=== PATIENT | male | born 1990 | race African-American/Black ===

== ENCOUNTER 2016-05-18 23:44 | Inpatient (IN) | payer OTHER ==
[~2016-05-18] VITALS: Ht 170.2 cm; Wt 97.1 kg
[2016-05-18 23:50] VITALS: BP 119/66; PULSE 96; RESP 16; TEMP 98; O2SAT 94
[2016-05-18] MEDS ORDERED: SODIUM CHLOR 0.9% 1000 ML INJ 1,000 ML IV SCH (23:53)
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
[2016-05-19] VITALS (8 sets, daily range): BP systolic 115–165; BP diastolic 62–100; PULSE 90–114; RESP 14–19; TEMP 98–99.7; O2SAT 93–97
[2016-05-19] MEDS ORDERED: DIPHTH/TETANUS/ACEL PERTUSSIS (BOOSTER) 0.5 ML VIAL/PFS IM ONE
[2016-05-19] MEDS ORDERED: ceFAZolin 2 GM PREMIX 50 ML IV ONE
[2016-05-19 00:12] LABS: I-STAT POTASSIUM 3.9 MMOL/L (3.5-4.9)
[2016-05-19 00:18] LABS: AUTOMATED NEUTROPHIL # 6.4 TH/MM3 (1.8-7.7); BASOPHIL # 0.1 TH/MM3 (0-0.2); BASOPHIL % 0.6 % (0.0-2.0); EOSINOPHIL # 0.1 TH/MM3 (0-0.4); EOSINOPHIL % 0.6 % (0.0-4.0); HEMATOCRIT 42.8 % (39.0-51.0); HEMO FLAGS DIFF FINAL; LYMPHOCYTE # 2.1 TH/MM3 (1.0-4.8); MEAN CELL VOLUME 84.3 FL (80.0-100.0); MEAN CORPUSCULAR HEMOGLOBIN 28.3 PG (27.0-34.0); MEAN CORPUSCULAR HGB CONC 33.5 % (32.0-36.0); NEUT % 66.8 % (16.0-70.0); PLATELET COUNT 200 TH/MM3 (150-450); RED BLOOD COUNT 5.08 MIL/MM3 (4.50-5.90); RED CELL DISTRIBUTION WIDTH 14.3 % (11.6-17.2); WHITE BLOOD COUNT 9.6 TH/MM3 (4.0-11.0)
[2016-05-19 00:35] LABS: PROTHROMBIN TIME - PATIENT 10.6 SEC (9.8-11.6)
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
[2016-05-19] MEDS ORDERED: IOHEXOL 350 MG/ML 10 ML VIAL (for RAD DIAG) IV ONE (00:42)
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
[2016-05-19] MEDS ORDERED: ONDANSETRON HCL 4 MG/2 ML VIAL IV PRN ×2 (02:15→08:15)
[2016-05-19] MEDS ORDERED: SODIUM CHLORIDE 0.9% FLUSH 5 ML FLUSH IVF PRN ×3 (02:15→08:15)
--- NOTE | 2016-05-19 02:31 | PD ---
Physical Exam Time Seen by Provider: 02:30 Data Data Last Documented VS Vital Signs Date Time Temp Pulse Resp B/P Pulse Ox O2 Delivery O2 Flow Rate FiO2 05/19/16 00:23 97 18 131/76 93 05/18/16 23:50 98.0 Orders I-Stat Profile (05/18/16 23:53) I-Stat Creatinine (05/18/16 23:53) Complete Blood Count With Diff (05/18/16 23:53) Prothrombin Time / Inr (Pt) (05/18/16 23:53) Act Partial Throm Time (Ptt) (05/18/16 23:53) Type And Screen (05/18/16 23:53) Alcohol (Ethanol) (05/18/16 23:53) Ct Brain W/O Iv Contrast(Rout) (05/18/16 23:53) Ct Cerv Spine W/O Contrast (05/18/16 23:53) Iv Access Insert/Monitor (05/18/16 23:53) Ecg Monitoring (05/18/16 23:53) Oximetry (05/18/16 23:53) Oxygen Administration (05/18/16 23:53) Remove Backboard (05/18/16 23:53) Splint Or Brace Apply/Monitor (05/18/16 23:53) Cefazolin 2 Gm Premix (Ancef 2 Gm Premix (05/19/16 00:00) [id number] (Booster) Inj (Boostrix (05/19/16 00:00) Sodium Chlor 0.9% 1000 Ml Inj (Ns 1000 M (05/18/16 23:53) Sodium Chloride 0.9% Flush (Ns Flush) (05/19/16 00:00) Ankle, Complete ([id number]) (05/18/16 ) Foot, Complete ([id number]) (05/18/16 ) Chest, Single Ap (05/19/16 ) Pelvis, Ap Only (Routine) (05/19/16 ) Elbow, Complete (4 Vws) (05/19/16 ) Iohexol 350 Inj (Omnipaque 350 Inj) (05/19/16 00:42) Ct Abd/Pel W Iv Contrast(Rout) (05/19/16 23:53) Ct Thorax/ Chest W Iv Contrast (05/19/16 23:53) Ct Foot W/O Contrast (05/19/16 ) Splint Or Brace Apply/Monitor (05/19/16 02:10) Admit Order (Ed Use Only) (05/19/16 ) Diet Npo (05/20/16 Breakfast) ^ Saline Lock (05/19/16 02:13) Resp Oxygen Luis A C Titrat 1-4 L (05/19/16 ) ^ Notify Dr: Other (05/19/16 02:13) Ondansetron Inj (Zofran Inj) (05/19/16 02:15) Sodium Chloride 0.9% Flush (Ns Flush) (05/19/16 09:00) Sodium Chloride 0.9% Flush (Ns Flush) (05/19/16 02:15) Consult Orthopedic (05/19/16 02:13) Labs Laboratory Tests Test 05/19/16 05/19/16 00:00 00:05 White Blood Count 9.6 TH/MM3 Red Blood Count 5.08 MIL/MM3 Hemoglobin 14.4 GM/DL Bedside Hemoglobin 15.6 G/DL Hematocrit 42.8 % Bedside Hematocrit 46.0 % Mean Corpuscular Volume 84.3 FL Mean Corpuscular Hemoglobin 28.3 PG Mean Corpuscular Hemoglobin 33.5 % Concent Red Cell Distribution Width 14.3 % Platelet Count 200 TH/MM3 Mean Platelet Volume 7.7 FL Neutrophils (%) (Auto) 66.8 % Lymphocytes (%) (Auto) 22.0 % Monocytes (%) (Auto) 10.0 % Eosinophils (%) (Auto) 0.6 % Basophils (%) (Auto) 0.6 % Neutrophils # (Auto) 6.4 TH/MM3 Lymphocytes # (Auto) 2.1 TH/MM3 Monocytes # (Auto) 1.0 TH/MM3 Eosinophils # (Auto) 0.1 TH/MM3 Basophils # (Auto) 0.1 TH/MM3 CBC Comment DIFF FINAL Differential Comment Prothrombin Time 10.6 SEC Prothromb Time International 1.0 RATIO Ratio Activated Partial 25.0 SEC Thromboplast Time Bedside Sodium 143 MMOL/L Bedside Potassium 3.9 MMOL/L Bedside Chloride 104 MMOL/L Bedside Blood Urea Nitrogen 11 MG/DL Bedside Creatinine 1.0 MG/DL Bedside Glucose 132 MG/DL Ethyl Alcohol Level 266 MG/DL Blood Type AB POSITIVE Antibody Screen NEGATIVE Blood Bank Comment MDM Medical Record Reviewed: Yes Supervised Visit with UNA: No Procedures Procedure Narrative LACERATION LOCATION: Left frontal scalp LENGTH: 3 cm NUMBER OF STITCHES/CARLOS: 4 Carlos REPAIR: The area of the laceration was prepped with Betadine and sterilely draped. The laceration was infiltrated with 1% lidocaine with epinephrine. The wound was copiously irrigated and explored without evidence of foreign body , tendon injury or neurovascular injury. The wound was closed using carlos. This was a single layer repair. The patient was advised to keep the dressing clean and dry. Patient tolerated the procedure well. LACERATION LOCATION: Left forehead LENGTH: 5 cm NUMBER OF STITCHES/CARLOS: 12 sutures REPAIR: The area of the laceration was prepped with Betadine and sterilely draped. The laceration was infiltrated with 1% lidocaine with epinephrine. The wound was copiously irrigated and explored without evidence of foreign body , tendon injury or neurovascular injury. The wound was closed using 5-0 Prolene. This was a single layer repair. The patient was advised to keep the dressing clean and dry. Patient tolerated the procedure well. Diagnosis Primary Impression: Head injury due to trauma Qualified Code: S09.90XA - Head injury due to trauma, initial encounter Additional Impression: Foot fracture, right Qualified Code: S92.901A - Foot fracture, right, closed, initial encounter Scripts No Active Prescriptions or Reported Meds Condition: Stable Isabel Estrada May 19, 2016 02:31
[2016-05-19] MEDS: SODIUM CHLOR 0.9% 1000 ML INJ 1,000 ML IV SCH ×3 (03:15→18:15)
[2016-05-19] MEDS ORDERED: ONDANSETRON HCL 4 MG/2 ML VIAL IV PUSH ONE (03:45)
[2016-05-19] MEDS ORDERED: MORPHINE SULFATE 4 MG/ML INJ IV PUSH ONE ×2 (03:45→05:00)
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
[2016-05-19] MEDS: MORPHINE SULFATE 4 MG/ML INJ IV PUSH PRN ×7 (07:57→22:46)
[2016-05-19] MEDS: SODIUM CHLORIDE 0.9% FLUSH 5 ML FLUSH IVF SCH ×2 (09:00→20:45)
[2016-05-19] MEDS: DOCUSATE SODIUM 50 MG/SENNA 8.6 MG TAB PO SCH ×2 (09:18→20:44)
[2016-05-19] MEDS: FAMOTIDINE 20 MG TAB PO SCH ×2 (09:18→20:44)
[2016-05-19] MEDS: MAGNESIUM HYDROXIDE SUSP 30 ML CUP PO SCH (09:18)
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
[2016-05-19] MEDS ORDERED: oxyCODONE/ACETAMINOPHEN 5 MG/325 MG TAB PO PRN ×2 (15:15→15:30)
[2016-05-19] MEDS: MULTIVITAMIN INJ 10 ML, THIAMINE INJ 100 MG, FOLIC ACID INJ 1 MG in SODIUM CHLORID 0.9%... IV SCH (16:41)
[2016-05-20] VITALS: BP 124/81; PULSE 90; RESP 16; TEMP 98.5; O2SAT 97
[2016-05-20] MEDS: MORPHINE SULFATE 4 MG/ML INJ IV PUSH PRN ×11 (00:47→22:29)
[2016-05-20] MEDS: SODIUM CHLOR 0.9% 1000 ML INJ 1,000 ML IV SCH (00:49)
[2016-05-20 07:36] VITALS: O2SAT 96
[2016-05-20 07:42] LABS: AUTOMATED NEUTROPHIL # 5.3 TH/MM3 (1.8-7.7); BASOPHIL % 0.3 % (0.0-2.0); EOSINOPHIL # 0.1 TH/MM3 (0-0.4); HEMATOCRIT 42.2 % (39.0-51.0); HEMO FLAGS DIFF FINAL; LYMPH % 15.3 % (9.0-44.0); LYMPHOCYTE # 1.2 TH/MM3 (1.0-4.8); MEAN CELL VOLUME 84.8 FL (80.0-100.0); MEAN CORPUSCULAR HEMOGLOBIN 27.1 PG (27.0-34.0); MONO % 15.2 % (0.0-8.0); NEUT % 68.2 % (16.0-70.0); PLATELET COUNT 166 TH/MM3 (150-450); RED BLOOD COUNT 4.98 MIL/MM3 (4.50-5.90); WHITE BLOOD COUNT 7.8 TH/MM3 (4.0-11.0)
[2016-05-20 08:00] VITALS: BP 140/84; PULSE 98; RESP 19; TEMP 99.9; O2SAT 97
[2016-05-20 08:10] LABS: ANION GAP 8 MEQ/L (5-15); AST (GOT) 34 U/L (15-37); BICARBONATE 28.9 MEQ/L (21.0-32.0); BLOOD UREA NITROGEN 5 MG/DL (7-18); CHLORIDE 101 MEQ/L (98-107); GLOMERULAR FILTRATION RATE 172 ML/MIN (>89); POTASSIUM 3.8 MEQ/L (3.5-5.1); SODIUM (NA) 138 MEQ/L (136-145)
[2016-05-20 08:14] LABS: ALKALINE PHOSPHATASE 77 U/L (45-117); ALT (GPT) 30 U/L (12-78); TOTAL BILIRUBIN ADULT 0.8 MG/DL (0.2-1.0)
[2016-05-20] MEDS: FAMOTIDINE 20 MG TAB PO SCH ×2 (08:27→20:12)
[2016-05-20] MEDS: MAGNESIUM HYDROXIDE SUSP 30 ML CUP PO SCH (08:27)
[2016-05-20] MEDS: DOCUSATE SODIUM 50 MG/SENNA 8.6 MG TAB PO SCH ×2 (08:27→20:12)
--- NOTE | 2016-05-20 08:53 | PD.ORT.PN ---
Subjective Subjective Remarks Comfortable Objective Vitals Vital Signs Date Time Temp Pulse Resp B/P Pulse Ox O2 Delivery O2 Flow Rate FiO2 05/20/16 00:00 98.5 90 16 124/81 97 05/19/16 20:00 98.9 90 16 154/95 95 05/19/16 17:25 151/86 05/19/16 16:05 99.7 95 19 165/100 95 05/19/16 14:35 20 05/19/16 12:16 99.0 104 14 134/86 96 I/O 05/19/16 05/19/16 05/19/16 05/20/16 05/20/16 05/20/16 07:00 15:00 23:00 07:00 15:00 23:00 Intake Total 3486 ml 1068 ml Output Total 400 ml 350 ml Balance 3086 ml 718 ml Intake Oral 1620 ml 480 ml IV Total 1866 ml 588 ml Output Urine Total 400 ml 350 ml Stool Total 0 ml # Voids 2 Result Diagram: 05/20/16 0653 05/20/16 0653 Imaging Last [address] 05/19/162352 Signed Impressions: Service Date/Time: Thursday, May 19, 2016 00:37 - CONCLUSION: Normal examination. Genaor Vivar MD Abdomen/Pelvis CT 05/19/162352 Signed Impressions: Service Date/Time: Thursday, May 19, 2016 00:37 - CONCLUSION: 1. Colonic diverticulosis without diverticulitis. Genaro Vivar MD Objective Remarks Right lower ext splint in place Toes NVI Assessment & Plan Problem List: (1) Fracture of cuboid of right foot (2) Multiple closed fractures of metatarsal bone of right foot (3) Fracture of talus of right ankle, closed (4) Calcaneus fracture, right (5) Head injury due to trauma Assessment and Plan Right calcaneus fracture Plan for surgery tomorrow Alternatives discussed All questions answered NPO after midnight. Preston Dempsey MD May 20, 2016 08:53
[2016-05-20] MEDS: SODIUM CHLORIDE 0.9% FLUSH 5 ML FLUSH IVF SCH ×2 (09:00→20:13)
[2016-05-20 12:00] VITALS: BP 142/83; PULSE 95; RESP 19; TEMP 99.7; O2SAT 96
[2016-05-20] MEDS: MULTIVITAMIN INJ 10 ML, THIAMINE INJ 100 MG, FOLIC ACID INJ 1 MG in SODIUM CHLORID 0.9%... IV SCH (15:33)
[2016-05-20 16:00] VITALS: BP 144/94; PULSE 102; RESP 18; TEMP 99.4; O2SAT 99
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
[2016-05-20 20:00] VITALS: BP 135/78; PULSE 101; RESP 16; TEMP 99.9; O2SAT 97
[2016-05-21] VITALS: BP 128/85; PULSE 90; RESP 17; TEMP 99.3; O2SAT 96
[2016-05-21] MEDS: MORPHINE SULFATE 4 MG/ML INJ IV PUSH PRN ×2 (02:19→06:45)
[2016-05-21 04:00] VITALS: BP 130/73; PULSE 85; RESP 16; TEMP 99.1; O2SAT 97
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
[2016-05-21 08:00] VITALS: BP 133/78; PULSE 88; RESP 18; TEMP 99.6; O2SAT 97
[2016-05-21] MEDS: DOCUSATE SODIUM 50 MG/SENNA 8.6 MG TAB PO SCH (10:05)
[2016-05-21] MEDS: ACETAMINOPHEN/HYDROcodone 325 MG/10 MG TAB PO PRN ×4 (10:05→21:06)
[2016-05-21] MEDS: FAMOTIDINE 20 MG TAB PO SCH (10:05)
[2016-05-21] MEDS: MAGNESIUM HYDROXIDE SUSP 30 ML CUP PO SCH (10:05)
[2016-05-21] MEDS: SODIUM CHLORIDE 0.9% FLUSH 5 ML FLUSH IVF SCH (10:06)
[2016-05-21] MEDS: GABAPENTIN 100 MG CAP PO SCH ×2 (12:20→17:03)
[2016-05-21] MEDS ORDERED: KETOROLAC TROMETHAMINE 30 MG/ML (IVP) VIAL IV PUSH ONE (12:30)
[2016-05-21 12:37] VITALS: BP 130/77; PULSE 91; RESP 18; TEMP 99.2; O2SAT 97
[2016-05-21] MEDS: MULTIVITAMIN INJ 10 ML, THIAMINE INJ 100 MG, FOLIC ACID INJ 1 MG in SODIUM CHLORID 0.9%... IV SCH (15:18)
[2016-05-21] MEDS ORDERED: HYDR-3583 PO (16:39)
[2016-05-21] MEDS ORDERED: KETO10 PO ×2 (16:45→21:00)
[2016-05-21] MEDS ORDERED: GABA100C4 PO (16:45)
[2016-05-21] MEDS ORDERED: SENN1TAB PO (16:45)
[2016-05-21] MEDS ORDERED: WALKER WHEELS/F1 MIS (16:47)
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
[2016-05-21] MEDS ORDERED: KETOROLAC TROMETHAMINE 10 MG TAB PO PRN (18:00)
== END 2016-05-21 21:16 | disposition home or self-care (01) | DRG 563 ==
LOC: NEPC 23:44 → NEDA 05-19 02:15 → NEPGCP 05-19 05:39 → N06A 05-19 15:47
PROVIDERS: ADMIT Surgery; ATTEND Surgery
PROC: 0HQ0XZZ Repair Scalp Skin, External Approach (ICD-10-PCS; principal; 2016-05-19)
DX: S92.011A Displaced fracture of body of right calcaneus, initial encounter for closed fracture (principal); S06.0X1A Concussion with loss of consciousness of 30 minutes or less, initial encounter; F10.129 Alcohol abuse with intoxication, unspecified; S92.151A Displaced avulsion fracture (chip fracture) of right talus, initial encounter for closed fracture; S01.01XA Laceration without foreign body of scalp, initial encounter; F17.210 Nicotine dependence, cigarettes, uncomplicated; S92.351A Displaced fracture of fifth metatarsal bone, right foot, initial encounter for closed fracture; V43.52XA Car driver injured in collision with other type car in traffic accident, initial encounter; Y92.410 Unspecified street and highway as the place of occurrence of the external cause; Y90.8 Blood alcohol level of 240 mg/100 ml or more; R40.2412 Glasgow coma scale score 13-15, at arrival to emergency department
CPT/HCPCS: 12004; 70450; 71010; 71260; 72125; 72170; 73080; 73610; 73630; 73700; 74177; 80053; 80320; 82435; 82565; 82947; 84132; 84295; 84520; 85025; 85610; 85730; 86850; 86900; 86901; 90471; 90715; 94150; 96365; J0690; J1885; J2270; J2405; J3411; J7030; J7040; Q9967

== ENCOUNTER → 2016-06-25 | Outpatient (CLI) | payer SELFPAY ==
[~2016-06-25] MED LIST: GABA100C4 PO; HYDR-3583 PO; KETO10 PO; SENN1TAB PO; WALKER WHEELS/F1 MIS
== END ==
LOC: HORT 11:21
PROVIDERS: ATTEND Physician Assistant
DX: S92.001D Unspecified fracture of right calcaneus, subsequent encounter for fracture with routine healing (principal); X58.XXXD Exposure to other specified factors, subsequent encounter
CPT/HCPCS: L2114